=== PATIENT | female | born 1945 | race Hispanic/Latino ===

== ENCOUNTER 2017-04-11 09:30 | Day surgery (SDC) | payer MEDICARE, OTHER ==
--- NOTE | 2017-04-11 09:36 | ED PDOC ---
Arrival/HPI - General Time Seen by Provider: 04/11/17 09:32 Historian: Patient - Critical Care Narrative Critical Care (Text): 04/11/17 09:42 Pt is a 72 yr old female who was getting a stress test today in outpatient unit and patient developed chest pain during the stress test. Pt received aspirin and plavix (600 mg) in [facility]. 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 Martini) states pt needs urgent cath. Pt states her chest pain is improved now. No SOB. Pt understands she is going to go from ED to director of laboratory operations. PMD: Juanjose Garza Past Medical History - Provider Review Nursing Documentation Reviewed: Yes - Infectious Disease Hx of Infectious Diseases: None - Tetanus Immunization Tetanus Immunization: Up to Date - Past Medical History Past Medical History: No Previous - Cardiac Hx Cardiac Disorders: No Hx Pacemaker: No - Pulmonary Hx Respiratory Disorders: No - Neurological Hx Neurological Disorder: No Hx Paralysis: No - HEENT Hx HEENT Disorder: No - Renal Hx Renal Disorder: No - Endocrine/Metabolic Hx Endocrine Disorders: No - Hematological/Oncological Hx Blood Disorders: No Hx Blood Transfusions: No Hx Blood Transfusion Reaction: No - Integumentary Hx Dermatological Disorder: No - Musculoskeletal/Rheumatological Hx Musculoskeletal Disorders: No - Gastrointestinal Hx Gastrointestinal Disorders: No - Genitourinary/Gynecological Hx Genitourinary Disorders: No - Psychiatric Hx Psychophysiologic Disorder: Yes Hx Depression: Yes Hx Emotional Abuse: No Hx Physical Abuse: No Hx Substance Use: No - Past Surgical History Past Surgical History: No Previous - Surgical History Hx Appendectomy: Yes Hx Cholecystectomy: Yes Hx Hysterectomy: Yes - Anesthesia Hx Anesthesia Reactions: No Hx Malignant Hyperthermia: No - Suicidal Assessment Feels Threatened In Home Enviroment: No Family/Social History - Physician Review Nursing Documentation Reviewed: Yes Family/Social History: CAD/HI, Neoplasm/Cancer Smoking Status: Heavy Smoker > 10 Cigarettes Daily Hx Alcohol Use: No Hx Substance Use: No Hx Substance Use Treatment: No Allergies/Home Meds Allergies/Adverse Reactions: Allergies IVP DYE Allergy (Intermediate, Uncoded 08/11/16 12:54) RASH Home Medications: Home Meds Medication Instructions Recorded Confirmed ALPRAZolam [Xanax] 0.25 mg PO PRN PRN 04/11/17 04/11/17 Review of Systems - Physician Review All systems were reviewed & negative as marked: Yes - Review of Systems Constitutional: Normal Respiratory: Normal Cardiovascular: Chest Pain Gastrointestinal: Normal. absent: Abdominal Pain Neurological: absent: Headache Physical Exam Vital Signs Reviewed: Yes Vital Signs Temp Pulse Resp BP Pulse Ox 04/11/17 09:32 97.9 F 72 16 172/66 H 97 04/11/17 09:31 97.6 F 70 18 172/66 H 99 Temperature: Afebrile Blood Pressure: Hypertensive Pulse: Regular Respiratory Rate: Normal Appearance: Positive for: Well-Appearing, Non-Toxic, Comfortable Pain Distress: None Mental Status: Positive for: Alert and Oriented X 3 - Systems Exam Head: Present: Atraumatic Pupils: Present: PERRL Extroacular Muscles: Present: EOMI Conjunctiva: Present: Normal Ears: Present: Normal Mouth: Present: Moist Mucous Membranes Pharnyx: Present: Normal Nose (External): Present: Atraumatic Neck: Present: Normal Range of Motion Respiratory/Chest: Present: Clear to Auscultation, Good Air Exchange. No: Respiratory Distress, Accessory Muscle Use Cardiovascular: Present: Regular Rate and Rhythm, Normal S1, S2. No: Murmurs Abdomen: Present: Normal Bowel Sounds. No: Tenderness, Distention, Peritoneal Signs Upper Extremity: Present: Normal Inspection. No: Cyanosis, Edema Lower Extremity: Present: Normal Inspection. No: Edema Neurological: Present: GCS=15, Speech Normal, Motor Func Grossly Intact, Normal Sensory Function Skin: Present: Warm, Dry, Normal Color. No: Rashes Psychiatric: Present: Alert, Oriented x 3, Normal Insight, Normal Concentration Medical Decision Making ED Course and Treatment: 04/11/17 09:46 Initial Impression: Unstable Angina Initial Plan: Will admit to director of laboratory operations - RAD Interpretation Radiology Orders: 04/11/17 09:40 CHEST PORTABLE [RAD] Stat Disposition/Present on Arrival - Present on Arrival Any Indicators Present on Arrival: No History of DVT/PE: No History of Uncontrolled Diabetes: No Urinary Catheter: No History Surgical Site Infection Following: None - Disposition Have Diagnosis and Disposition been Completed?: Yes Diagnosis: Unstable angina Disposition: HOSPITALIZED Disposition Time: 09:34 Patient Plan: Observation Condition: FAIR
[2017-04-11 10:09] LABS: BASO # 0.04 K/mm3 (0.0-2.0); BASO % 0.5 % (0.0-3.0); EOS # 0.1 (0.0-0.7); EOS % 1.5 % (1.5-5.0); GRAN # 4.87 (1.4-6.5); GRAN % 61.9 % (50.0-68.0); HEMOGLOBIN 14.2 gm/dL (12.0-16.0); LYMPH # 2.4 (1.2-3.4); LYMPH % 30.2 % (22.0-35.0); MEAN CELL VOLUME 84.4 fL (80.0-105.0); MEAN CORPUSCULAR HEMOGLOBIN 27.3 pg (25.0-35.0); MEAN CORPUSCULAR HGB CONC 32.3 g/dl (31.0-37.0); MEAN PLATELET VOLUME 11.2 fl (7.0-11.0); MONO # 0.5 (0.1-0.6); MONO % 5.9 % (1.0-6.0); PLATELET COUNT 161 10^3/uL (120.0-450.0); RED CELL DISTRIBUTION WIDTH 14.3 % (11.5-14.5); WHITE BLOOD COUNT 7.9 10^3/ul (4.5-11.0)
--- NOTE | 2017-04-11 10:09 | RAD ---
HISTORY: chest pain COMPARISON: 08/11/2016 FINDINGS: LUNGS: No active pulmonary disease. PLEURA: No significant pleural effusion identified, no pneumothorax apparent. CARDIOVASCULAR: Normal. OSSEOUS STRUCTURES: No significant abnormalities. VISUALIZED UPPER ABDOMEN: Normal. OTHER FINDINGS: None. IMPRESSION: No active disease.
[2017-04-11 10:16] LABS: INR 0.98 (0.93-1.08); PARTIAL THROMBOPLASTIN TIME 26.7 Seconds (23.7-30.8); PROTHROMBIN TIME 10.6 Seconds (9.9-11.8)
[2017-04-11 10:17] LABS: ALB/GLOB RATIO 1.6 (1.1-1.8); ALBUMIN 4.1 g/dL (3.0-4.8); ALT/SGPT 19 U/L (7-56); AST/SGOT 16 U/L (15-39); BLOOD UREA NITROGEN 10 mg/dL (7-21); GFR AFRICAN-AMERICAN > 60; GFR NON-AFRICAN AMERICAN > 60; MAGNESIUM 2.1 mg/dL (1.7-2.2)
[2017-04-11 10:29] LABS: B-TYPE NATRIURETIC PEPTIDE 102 pg/mL (0-450); TROPONIN I < 0.01 ng/mL
[2017-04-11] MEDS ORDERED: Lidocaine 2% Inj (20ml) ONE (10:55)
[2017-04-11] MEDS ORDERED: DiphenhydrAMINE 50 mg/ml Inj ONE (11:21)
[2017-04-11] MEDS ORDERED: Famotidine 20mg/50ml 20 MG/50 ML BAG IVPB ONE (11:21)
[2017-04-11] MEDS ORDERED: Midazolam 2 MG/2 ML VIAL ONE ×2 (12:00→12:14)
--- NOTE | 2017-04-11 12:28 | CARD ---
APPROVED REPORT EKG Measurement Heart [id number] <Conclusion> Normal sinus rhythm with sinus arrhythmia Rightward axis Nonspecific ST abnormality Abnormal ECG
[2017-04-11] MEDS ORDERED: Sodium Chloride 0.9% 1,000 ML IV SCH (12:45)
[2017-04-11 15:09] VITALS: BMI 26.9
[2017-04-12 01:20] VITALS: RESP 19; O2SAT 96
[2017-04-12 06:39] VITALS: BP 133/64; PULSE 62; TEMP 98.2
[2017-04-12 07:22] LABS: BASO # 0.02 K/mm3 (0.0-2.0); BASO % 0.2 % (0.0-3.0); EOS # 0.2 (0.0-0.7); EOS % 2.2 % (1.5-5.0); GRAN # 5.46 (1.4-6.5); GRAN % 55.1 % (50.0-68.0); LYMPH # 3.6 (1.2-3.4); LYMPH % 36.1 % (22.0-35.0); MEAN CELL VOLUME 84.7 fL (80.0-105.0); MEAN CORPUSCULAR HEMOGLOBIN 27.3 pg (25.0-35.0); MEAN CORPUSCULAR HGB CONC 32.2 g/dl (31.0-37.0); MEAN PLATELET VOLUME 10.9 fl (7.0-11.0); MONO # 0.6 (0.1-0.6); MONO % 6.4 % (1.0-6.0); PLATELET COUNT 151 10^3/uL (120.0-450.0); RBC 4.77 10^6/uL (3.5-6.1); RED CELL DISTRIBUTION WIDTH 14.2 % (11.5-14.5); WHITE BLOOD COUNT 9.9 10^3/ul (4.5-11.0)
[2017-04-12 07:30] LABS: BLOOD UREA NITROGEN 15 mg/dL (7-21); CALCIUM 8.7 mg/dL (8.4-10.5); GFR AFRICAN-AMERICAN > 60; GFR NON-AFRICAN AMERICAN > 60
[2017-04-12] MEDS ORDERED: Potassium Chloride 20 mEq ER Tab PO ONE (07:45)
--- NOTE | 2017-04-12 08:27 | CP.PCM.HP ---
History of Present Illness - History of Present Illness History of Present Illness: History of Present Illness: The patient is a 72 yo woman with hyperlipidemia and COPD who was evaluated in her PMD's office for a several month history of worsening substernal chest pain (worse with exertion) and HUMPHREY. She was scheduled for a nuclear stress test with Dr. Martini during which time she developed chest pain and dyspnea and was subsequently advised to go to the ED for urgent cardiac catheterization. The patient underwent successful PCI with JOSE C placement to the mid-circumflex lesion. The patient tolerated the procedure well and was then transferred to the telemetry villa for continued post catheterization care. This morning shes feels great, offers no complaints and wants to go home. Past Medical History: As per HPI, also anxiety disorder and b/l carotid artery stenosis Past Surgical History: Cholecystectomy, hysterectomy, b/l cataract removal, appendectomy, repair of right hammertoe Medications: Xanax, Dulera Allergies: IV contrast Family History: Significant for HTN and HL. No history of CAD, OH or sudden cardiac Social History: The patient reports and active 90 pk-yr smoking history and social EtOH. She denies illicit drug abuse Review of Systems: A 14-point review of systems is negative except as per HPI Physical Examination: VS: T 98.2, P 62, BP 133/64, RR 18, O2 96% on RA Gen: NAD HEENT: NC/AT, PERRL, EOMI, no scleral icterus, no conjunctival pallor Neck: supple with full ROM, (+) b/l carotid bruits Lungs: distant breath sounds but CTA b/l CV: RRR, normal S1, S2 Abd: NABS, soft, NT, ND Ext: no c/c/e, no femoral bruit or hematoma Neuro: AAOx3, no focal motor deficits Laboratory Data: Reviewed and unremarkable except for K 3.4 Assessment: The patient is a 72 yo woman with hyperlipidemia and COPD who was admitted after undergoing a nuclear stress test for evaluation of angina who is now s/p PCI with JOSE C stent placement to mid-circumflex lesion Plan: 1. Angina. Patient is s/p JOSE C stent placement to mid-circumflex lesion. Input from Dr. Martini noted and greatly appreciated. Continue with post catheterization care as per Dr. Martini. 2. CAD s/p PCI with stent placement. Continue with care as per #1. Patient to remain on ASA 81mg PO QD, Lipitor 40mg PO QD and Plavix 75mg PO QD 3. COPD. Continue with supplemental oxygen and bronchodilators as needed. Patient counseled on need for smoking cessation. 4. Anxiety disorder. Continue with Xanax 5. Hyperlipidemia. Continue with Lipitor 40mg PO QD 6. Tobacco dependence. As above, patient counseled on adverse health effects of smoking and need for smoking cessation. 7. Prophylaxis. GI prophylaxis not indicated as patient is eating. DVT prophylaxis not indicated as patient is ambulatory 8. Disposition. Patient for d/c home today Code Status: Full Code Present on Admission - Present on Admission Any Indicators Present on Admission: No Past Patient History - Infectious Disease Hx of Infectious Diseases: None - Tetanus Immunizations Tetanus Immunization: Up to Date - Past Social History Smoking Status: Light Smoker < 10 Cigarettes Daily - CARDIAC Hx Cardiac Disorders: No Hx Angina: Yes (admitted with unstable angina 04/11/17) Hx Pacemaker: No - PULMONARY Hx Respiratory Disorders: No - NEUROLOGICAL Hx Neurological Disorder: No - HEENT Hx HEENT Problems: No Hx Macular Degeneration: Yes (left eye only) - RENAL Hx Chronic Kidney Disease: No - ENDOCRINE/METABOLIC Hx Endocrine Disorders: No - HEMATOLOGICAL/ONCOLOGICAL Hx Blood Disorders: No - INTEGUMENTARY Hx Dermatological Problems: No - MUSCULOSKELETAL/RHEUMATOLOGICAL Hx Falls: Yes - GASTROINTESTINAL Hx Gastrointestinal Disorders: No - GENITOURINARY/GYNECOLOGICAL Hx Genitourinary Disorders: No - PSYCHIATRIC Hx Psychophysiologic Disorder: Yes Hx Depression: Yes Hx Emotional Abuse: No Hx Physical Abuse: No - SURGICAL HISTORY Hx Appendectomy: Yes Hx Cholecystectomy: Yes Hx Hysterectomy: Yes - ANESTHESIA Hx Anesthesia Reactions: No Hx Malignant Hyperthermia: No Meds Allergies/Adverse Reactions: Allergies Allergy/AdvReac Type Severity Reaction Status Date / Time IVP DYE Allergy Intermediate RASH Uncoded 08/11/16 12:54 Results - Vital Signs Recent Vital Signs: Last Vital Signs Temp 98.2 F 04/12/17 06:00 Pulse 62 04/12/17 06:00 Resp 19 04/12/17 06:00 BP 133/64 04/12/17 06:00 Pulse Ox 96 04/12/17 06:00 - Labs Result Diagrams: 04/12/17 07:00 04/12/17 07:00 Labs: Laboratory Results - last 24 hr 04/11/17 04/11/17 04/11/17 09:45 09:45 09:45 WBC 7.9 RBC 5.20 Hgb 14.2 Hct 43.9 MCV 84.4 MCH 27.3 MCHC 32.3 RDW 14.3 Plt Count 161 MPV 11.2 H Gran % 61.9 Lymph % (Auto) 30.2 [place] % (Auto) 5.9 Eos % (Auto) 1.5 Baso % (Auto) 0.5 Gran # 4.87 Lymph # 2.4 [place] # 0.5 Eos # 0.1 Baso # 0.04 PT 10.6 INR 0.98 APTT 26.7 Sodium 143 Potassium 4.4 Chloride 106 Carbon Dioxide 27 Anion Gap 14 BUN 10 Creatinine 0.5 Est GFR ( Amer) > 60 Est GFR (Non-Af Amer) > 60 Random Glucose 109 Calcium 9.0 Magnesium 2.1 Total Bilirubin 0.6 AST 16 ALT 19 Alkaline Phosphatase 62 Lactate Dehydrogenase 378 Total Creatine Kinase 47 Troponin I < 0.01 NT-Pro-B Natriuret Pep 102 Total Protein 6.7 Albumin 4.1 Globulin 2.6 Albumin/Globulin Ratio 1.6 Blood Type Antibody Screen BBK History Checked 04/11/17 04/12/17 04/12/17 09:50 07:00 07:00 WBC 9.9 D RBC 4.77 Hgb 13.0 Hct 40.4 MCV 84.7 MCH 27.3 MCHC 32.2 RDW 14.2 Plt Count 151 MPV 10.9 Gran % 55.1 Lymph % (Auto) 36.1 H [place] % (Auto) 6.4 H Eos % (Auto) 2.2 Baso % (Auto) 0.2 Gran # 5.46 Lymph # 3.6 H [place] # 0.6 Eos # 0.2 Baso # 0.02 PT INR APTT Sodium 143 Potassium 3.5 L Chloride 108 Carbon Dioxide 26 Anion Gap 13 BUN 15 Creatinine 0.6 Est GFR ( Amer) > 60 Est GFR (Non-Af Amer) > 60 Random Glucose 109 Calcium 8.7 Magnesium Total Bilirubin AST ALT Alkaline Phosphatase Lactate Dehydrogenase Total Creatine Kinase Troponin I NT-Pro-B Natriuret Pep Total Protein Albumin Globulin Albumin/Globulin Ratio Blood Type B POSITIVE Antibody Screen Negative BBK History Checked Patient has bt
--- NOTE | 2017-04-12 12:00 | CP.PCM.DIS ---
Provider - Provider Date of Admission: 04/11/2017 Attending physician: Joselo Subramanian MD Primary care physician: Dr. Juanjose Subramanian MD Consults: Dr. Boyd Martini (cardiology) Time Spent in preparation of Discharge (in minutes): 15 Hospital Course - Lab Results Lab Results: Most Recent Lab Values WBC 9.9 10^3/ul (4.5-11.0) D 04/12/17 07:00 RBC 4.77 10^6/uL (3.5-6.1) 04/12/17 07:00 Hgb 13.0 gm/dL (12.0-16.0) 04/12/17 07:00 Hct 40.4 % (36.0-48.0) 04/12/17 07:00 MCV 84.7 fL (80.0-105.0) 04/12/17 07:00 MCH 27.3 pg (25.0-35.0) 04/12/17 07:00 MCHC 32.2 g/dl (31.0-37.0) 04/12/17 07:00 RDW 14.2 % (11.5-14.5) 04/12/17 07:00 Plt Count 151 10^3/uL (120.0-450.0) 04/12/17 07:00 MPV 10.9 fl (7.0-11.0) 04/12/17 07:00 Gran % 55.1 % (50.0-68.0) 04/12/17 07:00 Lymph % (Auto) 36.1 % (22.0-35.0) H 04/12/17 07:00 [place] % (Auto) 6.4 % (1.0-6.0) H 04/12/17 07:00 Eos % (Auto) 2.2 % (1.5-5.0) 04/12/17 07:00 Baso % (Auto) 0.2 % (0.0-3.0) 04/12/17 07:00 Gran # 5.46 (1.4-6.5) 04/12/17 07:00 Lymph # 3.6 (1.2-3.4) H 04/12/17 07:00 [place] # 0.6 (0.1-0.6) 04/12/17 07:00 Eos # 0.2 (0.0-0.7) 04/12/17 07:00 Baso # 0.02 K/mm3 (0.0-2.0) 04/12/17 07:00 PT 10.6 Seconds (9.9-11.8) 04/11/17 09:45 INR 0.98 (0.93-1.08) 04/11/17 09:45 APTT 26.7 Seconds (23.7-30.8) 04/11/17 09:45 Sodium 143 mmol/L (132-148) 04/12/17 07:00 Potassium 3.5 mmol/L (3.6-5.0) L 04/12/17 07:00 Chloride 108 mmol/L (95-110) 04/12/17 07:00 Carbon Dioxide 26 mmol/L (21-33) 04/12/17 07:00 Anion Gap 13 (10-20) 04/12/17 07:00 BUN 15 mg/dL (7-21) 04/12/17 07:00 Creatinine 0.6 mg/dL (0.5-1.4) 04/12/17 07:00 Est GFR ( Amer) > 60 04/12/17 07:00 Est GFR (Non-Af Amer) > 60 04/12/17 07:00 Random Glucose 109 mg/dL (70-110) 04/12/17 07:00 Calcium 8.7 mg/dL (8.4-10.5) 04/12/17 07:00 Magnesium 2.1 mg/dL (1.7-2.2) 04/11/17 09:45 Total Bilirubin 0.6 mg/dL (0.2-1.3) 04/11/17 09:45 AST 16 U/L (15-39) 04/11/17 09:45 ALT 19 U/L (7-56) 04/11/17 09:45 Alkaline Phosphatase 62 U/L (38-133) 04/11/17 09:45 Lactate Dehydrogenase 378 U/L (333-699) 04/11/17 09:45 Total Creatine Kinase 47 U/L (35-230) 04/11/17 09:45 Troponin I < 0.01 ng/mL 04/11/17 09:45 NT-Pro-B Natriuret Pep 102 pg/mL (0-450) 04/11/17 09:45 Total Protein 6.7 g/dL (5.8-8.3) 04/11/17 09:45 Albumin 4.1 g/dL (3.0-4.8) 04/11/17 09:45 Globulin 2.6 gm/dL 04/11/17 09:45 Albumin/Globulin Ratio 1.6 (1.1-1.8) 04/11/17 09:45 Blood Type B POSITIVE 04/11/17 09:50 Antibody Screen Negative 04/11/17 09:50 BBK History Checked Patient has bt 04/11/17 09:50 - Hospital Course Hospital Course: Admitting Diagnosis: Unstable angina Discharge Diagnosis: Unstable angina s/p PCI with JOSE C stent placement to mid-circumflex lesion Secondary Diagnoses: CAD s/p PCI with JOSE C stent placement to mid-circumflex lesion, COPD, HL, Anxiety , tobacco dependence Consultations: Dr. Martini (cardiology) Procedures: PCI with JOSE C stent placement to mid-circumflex lesion Imaging Studies: CXR which demonstrated no acute pathology History of Present Illness: The patient is a 72 yo woman with hyperlipidemia and COPD who was evaluated in her PMD's office for a several month history of worsening substernal chest pain (worse with exertion) and HUMPHREY. She was scheduled for a nuclear stress test with Dr. Martini during which time she developed chest pain and dyspnea and was subsequently advised to go to the ED for urgent cardiac catheterization. The patient underwent successful PCI with JOSE C placement to the mid-circumflex lesion. The patient tolerated the procedure well and was then transferred to the telemetry villa for continued post catheterization care. Hospital Course: The patient's post-procedure course was unremarkable. The following day she was ambulating around the telemetry villa without difficulty and there were no complications noted at her cardiac cath site. She remained afebrile and hemodynamically stable and was deemed stable for discharge to home. Condition: Good, improved Disposition: To home Discharge Medications: Lipitor 40mg PO QD, Plavix 75mg PO QD, ASA 81mg PO QD, Dulera 200mcg 2 puffs BID , Xanax Discharge Instructions: Patient to adhere to post catheterization instructions as per Dr. Martini. Patient advised that if any recurrence of her symptoms to present to PMD or nearest ED immediately Follow-up: Patient to f/u with PMD within 2 weeks of discharge. Patient to f/u with Dr. Martini as scheduled. Discharge Plan - Discharge Medications Prescriptions: Aspirin 81 mg PO DAILY #30 tab.chew Atorvastatin [Lipitor] 40 mg PO DAILY #30 tab Clopidogrel [Plavix] 75 mg PO DAILY #30 tab - Follow Up Plan Condition: FAIR Disposition: HOME/ ROUTINE Instructions: Angina (GEN), Coronary Artery Disease (GEN), Heart Healthy Diet ( GEN), Coronary Angioplasty (GEN) Additional Instructions: Discharge home today. Follow up with Primary physician in a week. Continue home medications and new medications called into pharmacy by MD. If you experience any shortness of breath, chest pain or bleeding from the surgical site please go back to the emergency room. No heavy lifting. No smoking. Shower only, no baths for a week.
--- NOTE | 2017-04-19 15:28 | CP.PCM.PN ---
Subjective - Date & Time of Evaluation Date of Evaluation: 04/12/17 Time of Evaluation: 09:00 - Subjective Subjective: Patient is asymptomatic post PTC and stent of the circumflex artery. Objective - Vital Signs/Intake and Output Vital Signs (last 24 hours): Temp Pulse Resp BP Pulse Ox 98.2 F 62 19 133/64 96 04/12/17 06:00 04/12/17 06:00 04/12/17 06:00 04/12/17 06:00 04/12/17 06:00 Blood Pressure:133/64 Heart Rate:60s - Labs Labs: 04/12/17 07:00 04/12/17 07:00 PT 10.6 Seconds (9.9-11.8) 04/11/17 09:45 INR 0.98 (0.93-1.08) 04/11/17 09:45 APTT 26.7 Seconds (23.7-30.8) 04/11/17 09:45 - Neck Exam Additional comments: Negative JVD - Respiratory Exam Respiratory Exam: absent: Rales - Cardiovascular Exam Cardiovascular Exam: +S1, +S2 - Extremities Exam Additional comments: No edema - Additional Findings Additional findings: Vascular integrity is intact. Right groin side is stable, no hematoma Assessment and Plan - Assessment and Plan (Free Text) Assessment: 1)Status post PTC and stent of an 80% circumflex artery with a drug eluting stent 2)Unstable angina, now stable 3)CAD 4)Hypercholesterolemia 5)COPD Plan: 1)Given these findings, I have discussed with the patient in detail about the need to stop smoking, which she is finally agreeable. 2)Patient will need to remain on Aspirin, Efferin, and Plavix for at least one year. 3)Patient has agreed to enroll in a cardiac rehab program.
--- NOTE | 2017-04-20 12:54 | CARD ---
APPROVED REPORT EKG Measurement Heart [id number] <Conclusion> Sinus bradycardia Rightward axis Borderline ECG
--- NOTE | 2017-04-26 13:32 | PCM.OP ---
Operative Report - Operative Report Date of Surgery/Procedure: 04/11/17 Surgeon: Dr. Boyd Martini Pre-Operative Diagnosis: Unstable angina over the past 2 weeks Post-Operative Diagnosis: Cardiac catheterization revealed 2 vessel diseases with a circumflex lesion, as well as a patent stent in the RCA. LV function is normal. Indication for Surgery: Patient is a 72 year old woman who presents with symptoms consistent with unstable angina over the past 2 weeks. Her cardiac risk factors include history of PTC and stent years ago and she continues to smoke. Patient suffers from HTN and hypercholesterolemia. Due to ongoing symptoms, a cardiac catheterization was recommended. Past Hx: Medical: HTN. Hypercholesterolemia. Surgical: PTC and stent done years ago. Social: Active smoker. Operative Findings: The right some artery is cannulated with a 6 german sheath. There were no complications. The findings on catheterization revealed right dominant circulation. The RCA revealed diffuse atherosclerosis with a patent stent in the proximal portion. Left main artery was unremarkable. The LAD in diagonal vessels revealed diffuse atherosclerosis without critical lesions. The circumflex artery revealed an eccentric 80% stenosis in the proximal portion. LV function was found to be normal with an ejection fraction of 65%. The patient was started on intravenous Angiomax. Under fluoroscopic guide camera, the guiding catheter was placed in the ostium of the left main artery. A 0.014 inch ATW wire was used to cross the circumflex artery lesion. A 2.5 balloon was utilized to predilate the lesion. A 3.0 x 12 mm drug eluting stent was deployed in the proximal circumflex artery lesion at 12 sean of pressure. Repeated cardiography revealed excellent results, with BAR 3 flow and no residual stenosis. Angio-Seal was used to close the femoral artery site. The patient tolerated the procedure well. In summary, the procedure was successful for PTC and stent of an eccentric 80% stenosis in the proximal circumflex artery with a drug eluting stent. Cardiac catheterization revealed 2 vessel diseases with a circumflex lesion, as well as a patent stent in the RCA. LV function is normal. Procedure/Operation Description: 1)Left heart catheterization with coronary cartography. 2)Left ventricular angiogram. 3)PTC and stent of the circumflex artery with a drug eluting stent. Discharge & Condition: 1)Given these findings, the patient will need to remain on aspirin indefinitely and Plavix for at least 1 year. 2) Patient was counselled about the need to stop smoking.
== END 2017-04-12 09:30 | disposition home or self-care (01) ==
LOC: ED 09:30 → UNDOADMOB 09:39 → ERH 09:39 → CATH 11:12 → 2RSO 13:12 → CATH 04-12 09:30
PROVIDERS: ATTEND Student in an Organized Health Care Education/Training Program
DX: I25.110 Atherosclerotic heart disease of native coronary artery with unstable angina pectoris (principal); I65.23 Occlusion and stenosis of bilateral carotid arteries; J44.9 Chronic obstructive pulmonary disease, unspecified; F41.9 Anxiety disorder, unspecified; E78.5 Hyperlipidemia, unspecified; F17.210 Nicotine dependence, cigarettes, uncomplicated; Z95.5 Presence of coronary angioplasty implant and graft
CPT/HCPCS: 36415; 71010; 80048; 80053; 82550; 83615; 83735; 83880; 84484; 85025 ×2; 85610; 85730; 86850; 86900; 93005; 93458; 99152; 99153; 99283; C1725; C1760; C1769 ×2; C1874; C1887; C2629; C9600; J0583; J1200; J1644; J1720; J2250; J3010; J7040 ×2; Q9967

== ENCOUNTER 2017-05-22 06:13 | Day surgery (SDC) | payer MEDICARE ==
[2017-05-22] MEDS ORDERED: Lidocaine 2% Inj (20ml) ONE (06:58)
[2017-05-22] MEDS ORDERED: Famotidine 20mg/50ml 20 MG/50 ML BAG IVPB ONE (07:34)
[2017-05-22] MEDS ORDERED: DiphenhydrAMINE 50 mg/ml Inj ONE (07:34)
[2017-05-22] MEDS ORDERED: Midazolam 2 MG/2 ML VIAL ONE ×2 (07:43→08:09)
[2017-05-22] MEDS ORDERED: Sodium Chloride 0.9% 1,000 ML IV SCH (09:00)
[2017-05-22 09:16] VITALS: RESP 18; TEMP 97.9; O2SAT 95
[2017-05-22 09:20] VITALS: BMI 26.9
[2017-05-22 14:33] VITALS: BP 141/79; PULSE 77
--- NOTE | 2017-05-22 21:01 | CARDCATH ---
PROCEDURE DATE: 05/22/2017 HISTORY: The patient is a 72-year-old woman who presents to my office with 2 weeks of progressive exertional shortness of breath and chest pain. The patient is status post PTCA and stent of a proximal circumflex artery 1 month ago. She continues to smoke as an outpatient despite advice about not smoking. She suffers from hypertension and hypercholesterolemia as well as peripheral vascular disease. During her stress test, the patient experienced exertional shortness of breath and chest pain. Because of this, cardiac catheterization was recommended. PROCEDURES: Left heart catheterization with coronary aortography, left ventriculogram, supra-aortic valvular injection. The right femoral artery was cannulated with a 6-Yemeni sheath. There were no complications. The left femoral artery was cannulated with 6-Yemeni sheath. The findings on catheterization revealed a left ventricle that contracted normally. Estimated ejection fraction was 60%. The coronary anatomy revealed left main artery that was unremarkable. The circumflex artery was diffusely diseased with a patent stent in the proximal portion. The LAD revealed diffuse atherosclerosis throughout its tree without a discrete critical lesion. Diagonal vessels were free of significant disease. The right coronary artery was selectively cannulized and found to be a dominant vessel. The RCA revealed a 50-60% stenosis in the proximal portion. Supra-aortic valvular injection reveals no aortic insufficiency. Manual compression was used to close the femoral artery because of diffuse atherosclerosis in the femoral artery. The patient tolerated the procedure well. In summary, the procedure revealed two-vessel CAD with a 60% stenosis in the proximal RCA as well as a patent stent in the circumflex artery. The LAD revealed diffuse atherosclerosis. LV function is normal. Supra-aortic valvular injection revealed no aortic insufficiency. Given these findings, the patient's treatment needs to be continued medical therapy. We will continue her aspirin and Plavix. Once again, I have had an extensive discussion with the patient about the need to stop smoking. I have reviewed the consequences in detail. I have offered her a program to stop smoking. The patient states she wants to think about it. Followup instructions were given to the patient. Boyd Martini MD
== END 2017-05-22 15:55 | disposition home or self-care (01) ==
LOC: CATH 06:13
PROVIDERS: ATTEND Internal Medicine Cardiovascular Disease
DX: I25.10 Atherosclerotic heart disease of native coronary artery without angina pectoris (principal); I10 Essential (primary) hypertension; E78.00 Pure hypercholesterolemia, unspecified; I73.9 Peripheral vascular disease, unspecified; J44.9 Chronic obstructive pulmonary disease, unspecified; Z95.5 Presence of coronary angioplasty implant and graft
CPT/HCPCS: 36415; 86850; 86900; 93458; 93567; 99152; C1769; C2629; J0171; J1200; J1644; J2001; J2250; J2930; J3010; J7040 ×2; Q9967

== ENCOUNTER 2018-04-16 07:20 | Day surgery (SDC) | payer MEDICARE ==
[2018-04-11 12:32] VITALS: BMI 27.4
[2018-04-16] MEDS ORDERED: Lidocaine 1% Inj (20ml) ONE (08:34)
[2018-04-16] MEDS ORDERED: Propofol 10 mg/ml Inj (20 ML) ONE (08:34)
[2018-04-16] MEDS ORDERED: Sodium Chloride 0.9% 1,000 ML IV SCH (09:00)
[2018-04-16 09:32] VITALS: RESP 16
[2018-04-16 09:50] VITALS: BP 148/54; PULSE 61; TEMP 97.9; O2SAT 98
== END 2018-04-16 10:22 | disposition home or self-care (01) ==
LOC: ENDO 07:20
PROVIDERS: ATTEND Internal Medicine Gastroenterology
DX: K21.0 Gastro-esophageal reflux disease with esophagitis (principal); K29.50 Unspecified chronic gastritis without bleeding; K29.80 Duodenitis without bleeding; K25.9 Gastric ulcer, unspecified as acute or chronic, without hemorrhage or perforation
CPT/HCPCS: 43239; 88305; 88342; J2704; J7030; J7040

== ENCOUNTER 2019-01-16 05:54 | Outpatient (CLI) | payer MEDICARE | END 2019-01-16 05:55 | disposition home or self-care (01) | LOC: CARDIO 05:54 ==

== ENCOUNTER 2019-01-21 06:05 | Day surgery (SDC) | payer MEDICARE ==
[2018-04-11 12:32] VITALS: BMI 27.4
[2019-01-21 06:51] LABS: BASO # 0.03 K/mm3 (0.0-2.0); BASO % 0.4 % (0.0-3.0); EOS # 0.3 (0.0-0.7); EOS % 3.9 % (1.5-5.0); HEMOGLOBIN 13.4 g/dL (12.0-16.0); LYMPH # 2.7 (1.2-3.4); LYMPH % 36.4 % (22.0-35.0); MEAN CORPUSCULAR HEMOGLOBIN 27.1 pg (25.0-35.0); MEAN CORPUSCULAR HGB CONC 32.3 g/dl (31.0-37.0); MEAN PLATELET VOLUME 11.8 fl (7.0-11.0); MONO # 0.5 (0.1-0.6); MONO % 6.6 % (1.0-6.0); RBC 4.94 10^6/uL (3.5-6.1); RED CELL DISTRIBUTION WIDTH 14.8 % (11.5-14.5); WHITE BLOOD COUNT 7.4 10^3/uL (4.5-11.0)
[2019-01-21] MEDS ORDERED: Iohexol 350mgl/ml 50 ML ONE (06:52)
[2019-01-21] MEDS ORDERED: Lidocaine PF 2% (5 ml) Inj (For Cardiac Arrhy) ONE (06:52)
[2019-01-21] MEDS ORDERED: Iodixanol 320 MG/ML 100 ML BOTTLE IV ONE (06:53)
[2019-01-21] MEDS ORDERED: Iodixanol 320 MG/ML 200 ML BOTTLE IV ONE (06:53)
[2019-01-21] MEDS ORDERED: DiphenhydrAMINE 50 mg/ml Inj ONE (07:25)
[2019-01-21] MEDS ORDERED: Famotidine 20mg/50ml 20 MG/50 ML BAG IVPB ONE (07:26)
[2019-01-21 07:42] LABS: INR 1.04; PARTIAL THROMBOPLASTIN TIME 31.2 Seconds (26.9-38.3); PROTHROMBIN TIME 11.8 SECONDS (9.4-12.5)
[2019-01-21 07:43] LABS: BLOOD UREA NITROGEN 14 mg/dL (7-21); CALCIUM 8.7 mg/dL (8.4-10.5); GFR NON-AFRICAN AMERICAN > 60; HDL CHOLESTEROL 48 mg/dL (29-60)
[2019-01-21 07:54] LABS: LDL CHOLESTEROL 117 mg/dL (0-129)
[2019-01-21] MEDS ORDERED: Midazolam 2 MG/2 ML VIAL ONE (08:03)
[2019-01-21] MEDS ORDERED: Sodium Chloride 0.9% 1,000 ML IV SCH (08:45)
[2019-01-21 09:09] VITALS: RESP 18; TEMP 97.8
[2019-01-21 09:17] VITALS: O2SAT 98
--- NOTE | 2019-01-21 12:05 | CARDCATH ---
PROCEDURE DATE: 01/21/2019 HISTORY The patient is a 74-year-old woman who presents with progressive shortness of breath. She suffers from severe COPD from years of smoking, she also suffers from coronary artery disease with a stent placed in the past. Her stress test was inconclusive due to the inability to obtain an adequate heart rate. Because of this, cardiac catheterization was recommended. PROCEDURE: Left heart catheterization with coronary arteriography and left ventriculogram with supra-aortic valvular injection. The right femoral artery was cannulated with a 6-[place]itan sheath. There were no complications. I performed moderate sedation which included the presence of an independent trained observer that assisted in monitoring the patient's level of consciousness and physiologic status. After administration of Versed and fentanyl, my intra-service time was 30 minutes. The findings on catheterization revealed left ventricle that contracted normally. Estimated ejection fraction is 70%. Supra-aortic valvular injection revealed no aortic insufficiency. The patient had a right-dominant circulation. The RCA revealed diffuse atherosclerosis throughout its tree with a 50% stenosis in the midportion as well as in the PDA. Her left main artery is unremarkable. The LAD and diagonal vessels reveal diffuse atherosclerosis with calcification. In the mid to distal LAD, there were multiple 50% lesions throughout its course. The circumflex artery revealed diffuse atherosclerosis with calcification. There is a patent stent in the proximal portion. Angio-Seal was used to close the femoral artery site. The patient tolerated the procedure well. In summary, the procedure revealed a patent stent in the proximal circumflex artery. 50% stenosis in the RCA as well as multiple 50% lesions in the mid to distal LAD. Calcification in the coronary tree. Normal LV function. No aortic insufficiency. Given these findings, the patient's dyspnea does not appear to be due to her ischemic coronary artery disease. She needs to stop smoking. An investigation to a pulmonary cause of her progressive shortness of breath would be appropriate. Boyd Martini MD
[2019-01-21 12:18] VITALS: PULSE 72
--- NOTE | 2019-01-21 12:34 | CARD ---
APPROVED REPORT Date of service: 01/21/2019 EKG Measurement Heart [id number] <Conclusion> Normal sinus rhythm Rightward axis Borderline ECG
[2019-01-21 14:03] VITALS: BP 138/70
== END 2019-01-21 14:30 | disposition home or self-care (01) ==
LOC: CATH 06:05
PROVIDERS: ATTEND Internal Medicine Cardiovascular Disease
DX: I25.10 Atherosclerotic heart disease of native coronary artery without angina pectoris (principal); R06.00 Dyspnea, unspecified; J44.9 Chronic obstructive pulmonary disease, unspecified; F17.200 Nicotine dependence, unspecified, uncomplicated; Z95.5 Presence of coronary angioplasty implant and graft
CPT/HCPCS: 36415; 80048; 80061; 85025; 85610; 85730; 86850; 86900; 93005; 93458; 99152; C1769; C2629; J1200; J1644; J2250; J2930; J3010; J7030; J7040; Q9966

== ENCOUNTER 2019-01-29 10:26 | Outpatient (CLI) | payer MEDICARE | END 2019-01-29 10:27 | disposition home or self-care (01) | LOC: RAD 10:26 ==

== ENCOUNTER 2019-02-04 07:48 | Day surgery (SDC) | payer MEDICARE ==
[2018-04-11 12:32] VITALS: BMI 27.4
[2019-02-04] MEDS ORDERED: Midazolam 2 MG/2 ML VIAL ONE (10:52)
[2019-02-04] MEDS ORDERED: Propofol 10 mg/ml Inj (20 ML) ONE (10:52)
[2019-02-04] MEDS ORDERED: Sodium Chloride 0.9% 1,000 ML IV SCH (11:30)
[2019-02-04 13:56] VITALS: BP 105/59; PULSE 62; RESP 18; TEMP 99; O2SAT 96
== END 2019-02-04 12:40 | disposition home or self-care (01) ==
LOC: ENDO 07:48
PROVIDERS: ATTEND Internal Medicine Gastroenterology
DX: K25.9 Gastric ulcer, unspecified as acute or chronic, without hemorrhage or perforation (principal); K44.9 Diaphragmatic hernia without obstruction or gangrene; K20.9 Esophagitis, unspecified; K29.80 Duodenitis without bleeding
CPT/HCPCS: 43239; 88305; 88342; J2001; J2250; J2704; J3010; J7030